=== PATIENT | female | born 1995 ===

== ENCOUNTER 2018-08-27 21:12 | Emergency (ER) | payer MEDICAID, OTHER ==
[2018-08-27 21:53] VITALS: BP 142/83; PULSE 89; RESP 16; TEMP 98.2; O2SAT 100
== END 2018-08-27 23:30 | disposition left against medical advice (07) ==
LOC: H.ER 21:12
DX: Z02.89 Encounter for other administrative examinations (principal)

== ENCOUNTER 2018-08-28 13:51 | Emergency (ER) | payer MEDICAID, OTHER ==
[2018-08-28 14:03] VITALS: TEMP 98.1; O2SAT 100
[2018-08-28] MEDS ORDERED: Alum-Mag Hydrox-Simethicone Susp (30 mL) PO ONE (14:25)
[2018-08-28 14:44] LABS: SPERM URINE RARE /hpf; SQUAMOUS EPITHIAL 6 /hpf (0-5); URINE AMORPHOUS SEDIMENT RARE /ul (<OCC); URINE BILIRUBIN NEGATIVE (NEGATIVE); URINE BLOOD NEGATIVE (NEGATIVE); URINE CLARITY SLIGHTY-CLOUDY (Clear); URINE COLOR YELLOW (YELLOW); URINE GLUCOSE (UA) NEG (Normal); URINE LEUKOCYTE ESTERASE TRACE Leu/uL (Negative); URINE PROTEIN 30 mg/dL (NEGATIVE); URINE UROBILINOGEN 0.2-1.0 mg/dL (0.2-1.0)
--- NOTE | 2018-08-28 14:46 | ED PDOC ---
HPI: Abdomen Time Seen by Provider: 08/28/18 14:12 Chief Complaint (Nursing): Abdominal Pain Chief Complaint (Provider): Abdominal Pain History Per: Patient History/Exam Limitations: no limitations Onset/Duration Of Symptoms: Days (x2 years) Location Of Pain/Discomfort: Epigastric Additional Complaint(s): 23 year old female presents with epigastric pain for 2 years. Patient describes pain as acid-like which is worse after eating regardless of what she eats. She takes Tums without relief. Over the past three to four days, her pain has worsened despite taking Tums. She denies nausea, vomiting, diarrhea, chest pain or shortness of breath. PMD: none provided Past Medical History Reviewed: Historical Data, Nursing Documentation, Vital Signs Vital Signs: Last Vital Signs Temp 98.1 F 08/28/18 14:00 Pulse 80 08/28/18 14:00 Resp 16 08/28/18 14:00 BP 132/82 08/28/18 14:00 Pulse Ox 100 08/28/18 14:00 - Medical History PMH: Pneumonia Denies: Chronic Kidney Disease - Family History Family History: States: Unknown Family Hx - Home Medications Home Medications: Ambulatory Orders Medication Instructions Recorded Famotidine [Pepcid] 20 mg PO DAILY PRN #14 tab 08/28/18 - Allergies Allergies/Adverse Reactions: Allergies Allergy/AdvReac Type Severity Reaction Status Date / Time No Known Allergies Allergy Verified 08/28/18 14:00 Review of Systems ROS Statement: Except As Marked, All Systems Reviewed And Found Negative Cardiovascular: Negative for: Chest Pain Respiratory: Negative for: Shortness of Breath Gastrointestinal: Positive for: Abdominal Pain (epigastric). Negative for: Nausea, Vomiting, Diarrhea Physical Exam - Reviewed Nursing Documentation Reviewed: Yes Vital Signs Reviewed: Yes - Physical Exam Appears: Positive for: No Acute Distress Eye Exam: Positive for: Normal appearance, EOMI, PERRL Cardiovascular/Chest: Positive for: Regular Rate, Rhythm. Negative for: Murmur Respiratory: Positive for: Normal Breath Sounds Gastrointestinal/Abdominal: Positive for: Soft. Negative for: Tenderness Back: Negative for: L CVA Tenderness, R CVA Tenderness Neurologic/Psych: Positive for: Alert, Oriented - Laboratory Results Result Diagrams: 08/28/18 14:43 08/28/18 14:43 - ECG O2 Sat by Pulse Oximetry: 100 (RA) Pulse Ox Interpretation: Normal - Progress Condition: Re-examined, Improved Medical Decision Making Medical Decision Making: Time: 1425 Initial Impression: Abdominal pain Initial Plan: --CMP --Lipase --Urine preg --CBC with differentials --Maalox 30 ml PO --Pepcid 20 mg IVP --UA --US abdomen --US gallbladder Time: 1744 US Abdomen, Right Upper Quadrant: FINDINGS: LIVER: Within normal limits in size and echogenicity. No mass. GALLBLADDER: The gallbladder appears within normal limits. No gallbladder wall thickening or pericholecystic fluid. COMMON BILE DUCT: No dilation. 2 mm. PANCREAS: The visualized pancreas appears within normal limits. The distal pancreas is obscured by bowel gas. RIGHT KIDNEY: Unremarkable. 9.8 cm. Normal renal contours. No renal mass or calculus. No hydronephrosis. IMPRESSION: Unremarkable right upper quadrant ultrasound. Scribe Attestation: Documented by Mini Candelario, acting as a scribe for Lyle Mas PA-C Provider Scribe Attestation: All medical record entries made by the Scribe were at my direction and personally dictated by me. I have reviewed the chart and agree that the record accurately reflects my personal performance of the history, physical exam, medical decision making, and the department course for this patient. I have also personally directed, reviewed, and agree with the discharge instructions and disposition. Disposition - Clinical Impression Clinical Impression: Dyspepsia - Patient ED Disposition Is Patient to be Admitted: No - Disposition Referrals: General Practice Service [Outside] Disposition: Routine/Home Disposition Time: 17:51 Condition: IMPROVED Additional Instructions: SANDER VASQUEZ, thank you for letting us take care of you today. Your provider was Ray Nguyen MD and you were treated for ABD PAIN. The emergency medical care you received today was directed at your acute symptoms. If you were prescribed any medication, please fill it and take as directed. It may take several days for your symptoms to resolve. Return to the Emergency Department if your symptoms worsen, do not improve, or if you have any other problems. Please contact your doctor or call one of the physicians/clinics you have been referred to that are listed on the Patient Visit Information form that is included in your discharge packet. Bring any paperwork you were given at discharge with you along with any medications you are taking to your follow up visit. Our treatment cannot replace ongoing medical care by a primary care provider outside of the emergency department. Thank you for allowing the [facility] team to be part of your care today. If you had an X-Ray or CT scan: A Radiologist will review the ED reading if any change in treatment is needed we will contact you. If you had a blood, urine, or wound culture: It will take several days for the results, if any change in treatment is needed we will contact you. If you had an STI test: It will take 48 hours for the results. Please call after 1 week if you have not heard back. Prescriptions: Famotidine [Pepcid] 20 mg PO DAILY PRN #14 tab PRN Reason: Dyspepsia Instructions: Dyspepsia (DC) Forms: [employer] (Spanish) Print Language: UPPER SORBIAN
[2018-08-28 14:48] LABS: BASO # 0.1 K/uL (0.0-0.2); BASO % 0.5 % (0.0-2.0); EOS # 0.1 K/uL (0.0-0.7); EOS % 0.7 % (0.0-4.0); HEMOGLOBIN 13.8 g/dL (12.0-16.0); LYMPH # 3.5 K/uL (1.0-4.3); MEAN CELL VOLUME 84.5 fl (81.0-99.0); MEAN CORPUSCULAR HEMOGLOBIN 28.4 pg (27.0-31.0); MEAN CORPUSCULAR HGB CONC 33.6 g/dL (33.0-37.0); MEAN PLATELET VOLUME 9.4 fl (7.2-11.7); MONO # 0.4 K/uL (0.0-0.8); MONO % 4.1 % (0.0-10.0); NEUT # 5.6 K/uL (1.8-7.0); NEUT % 58.7 % (50.0-75.0); NRBC % 0.1 % (0.0-0.0); RBC 4.85 Mil/uL (3.80-5.20); RED CELL DISTRIBUTION WIDTH 12.1 % (11.5-14.5); WHITE BLOOD COUNT 9.6 K/uL (4.8-10.8)
[2018-08-28 14:56] LABS: ALB/GLOB RATIO 1.1 (1.0-2.1); ALBUMIN 4.5 g/dL (3.5-5.0); ALT/SGPT 28 U/L (9-52); AST/SGOT 23 U/L (14-36); BLOOD UREA NITROGEN 11 mg/dl (7-17); CALCIUM 9.2 mg/dL (8.4-10.2); GFR NON-AFRICAN AMERICAN > 60; LIPASE 39 U/L (23-300)
[2018-08-28 18:05] VITALS: BP 132/70; PULSE 71; RESP 19
--- NOTE | 2018-08-28 19:09 | US ---
Date of service: 08/28/2018 HISTORY: epigastric abd pain COMPARISON: None. TECHNIQUE: Sonographic evaluation of the right upper quadrant of the abdomen. FINDINGS: LIVER: Measures cm in length. Normal echogenicity of the liver parenchyma. No mass. No intrahepatic bile duct dilatation. GALLBLADDER: Unremarkable. No gallstones. COMMON BILE DUCT: Measures mm. No stones. No dilatation. PANCREAS: Unremarkable as visualized. No mass. No ductal dilatation. RIGHT KIDNEY: Measures cm in length. Normal echogenicity. No calculus, mass, or hydronephrosis. AORTA: No aneurysmal dilatation. IVC: Unremarkable. OTHER FINDINGS: None . IMPRESSION: Normal exam.
== END 2018-08-28 18:04 | disposition home or self-care (01) ==
LOC: H.ER 13:51
DX: R10.13 Epigastric pain (principal)

== ENCOUNTER 2018-10-22 09:31 | Emergency (ER) | payer OTHER, SELFPAY ==
[2018-10-22 09:45] VITALS: RESP 18
[2018-10-22 11:23] LABS: URINE BACTERIA RARE (<OCC); URINE BILIRUBIN NEGATIVE (NEGATIVE); URINE BLOOD MODERATE (NEGATIVE); URINE CLARITY SLIGHTY-CLOUDY (Clear); URINE COLOR YELLOW (YELLOW); URINE GLUCOSE (UA) NEG (NEGATIVE); URINE LEUKOCYTE ESTERASE NEG Leu/uL (Negative); URINE PROTEIN NEGATIVE (NEGATIVE); URINE UROBILINOGEN 0.2-1.0 mg/dL (0.2-1.0)
[2018-10-22 11:34] LABS: BASO % 0.6 % (0.0-2.0); EOS # 0.1 K/uL (0.0-0.7); EOS % 1.1 % (0.0-4.0); HEMOGLOBIN 14.7 g/dL (12.0-16.0); LYMPH # 3.2 K/uL (1.0-4.3); LYMPH % 42.8 % (20.0-40.0); MEAN CELL VOLUME 84.1 fl (81.0-99.0); MEAN CORPUSCULAR HEMOGLOBIN 28.2 pg (27.0-31.0); MEAN CORPUSCULAR HGB CONC 33.5 g/dL (33.0-37.0); MEAN PLATELET VOLUME 9.4 fl (7.2-11.7); MONO # 0.5 K/uL (0.0-0.8); MONO % 6.8 % (0.0-10.0); NEUT # 3.6 K/uL (1.8-7.0); NEUT % 48.7 % (50.0-75.0); NRBC % 0.5 % (0.0-0.0); RBC 5.2 Mil/uL (3.80-5.20); RED CELL DISTRIBUTION WIDTH 12.2 % (11.5-14.5); WHITE BLOOD COUNT 7.4 K/uL (4.8-10.8)
[2018-10-22 11:37] LABS: ALB/GLOB RATIO 1.1 (1.0-2.1)
[2018-10-22 11:42] LABS: ALBUMIN 4.6 g/dL (3.5-5.0); ALT/SGPT 34 U/L (9-52); AST/SGOT 23 U/L (14-36); BLOOD UREA NITROGEN 8 mg/dl (7-17); CALCIUM 9.5 mg/dL (8.4-10.2); GFR NON-AFRICAN AMERICAN > 60; LIPASE 38 U/L (23-300)
[2018-10-22] MEDS ORDERED: Sodium Chloride 0.9% 50 ML IV ONE (12:02)
[2018-10-22] MEDS ORDERED: Iohexol 300 100 ML IJ ONE (12:02)
--- NOTE | 2018-10-22 14:38 | CT ---
Date of service: 10/22/2018 PROCEDURE: CT Abdomen and Pelvis with contrast HISTORY: repeat visit for central/upper abd pain COMPARISON: None. TECHNIQUE: Contrast dose: 95 mL Omnipaque 300 Radiation dose: Total exam DLP = 382.48 mGy-cm. This CT exam was performed using one or more of the following dose reduction techniques: Automated exposure control, adjustment of the mA and/or kV according to patient size, and/or use of iterative reconstruction technique. FINDINGS: LOWER THORAX: Unremarkable. LIVER: Unremarkable. No gross lesion or ductal dilatation. GALLBLADDER AND BILE DUCTS: Unremarkable. PANCREAS: Unremarkable. No gross lesion or ductal dilatation. SPLEEN: Unremarkable. ADRENALS: Unremarkable. No mass. KIDNEYS AND URETERS: Unremarkable. No hydronephrosis. No solid mass. VASCULATURE: Unremarkable. No aortic aneurysm. No aortic atherosclerotic calcification or mural plaque present. BOWEL: Unremarkable. No obstruction. No gross mural thickening. APPENDIX: Normal appendix. PERITONEUM: Unremarkable. No free fluid. No free air. LYMPH NODES: No retroperitoneal or pelvic lymphadenopathy. There are multiple subcentimeter nodes medial to the ascending colon, up to 8 mm in short axis. Possible mesenteric adenitis.. BLADDER: Nondistended REPRODUCTIVE: Probable small uterine fibroids. Correlate with pelvic ultrasound on a nonemergent basis. BONES: No acute fracture. OTHER FINDINGS: None. IMPRESSION: Multiple subcentimeter lymph nodes medial to the ascending colon, up to 8 mm short axis. Possible mesenteric adenitis. Probable small uterine fibroids. No other significant abnormality is identified.
--- NOTE | 2018-10-22 15:31 | ED PDOC ---
HPI: Abdomen Time Seen by Provider: 10/22/18 10:23 Chief Complaint (Nursing): Abdominal Pain Chief Complaint (Provider): abdominal pain, rash History Per: Patient History/Exam Limitations: no limitations Onset/Duration Of Symptoms: Days (1 week), Intermittent Episodes Current Symptoms Are (Timing): Intermittent Episodes Context: Food Severity: Mild Location Of Pain/Discomfort: Periumbilical Quality Of Discomfort: Cramping, Burning Associated Symptoms: Nausea. denies: Vomiting, Diarrhea, Loss Of Appetite Exacerbating Factors: None Alleviating Factors: None Additional History Per: Prior Records Additional Complaint(s): 23yo female c/o central and upper abdominal discomfort ongoing intermittently for several weeks. Also notes scattered intermittent rash to arms, legs and neck. States started new detergent she states may be causing but already stopped it. Denies throat swelling, SOB, cough or weakness. Denies melena, vomiting, diarrhea or BRBPR. Prior charts reviewed, had ED visit for abd pain in august, abdomen performed no gallstones. Past Medical History Reviewed: Historical Data, Nursing Documentation, Vital Signs Vital Signs: Last Vital Signs Temp 98.0 F 10/22/18 09:44 Pulse 73 10/22/18 09:44 Resp 18 10/22/18 09:44 BP 131/81 10/22/18 09:44 Pulse Ox 100 10/22/18 09:44 - Medical History PMH: Pneumonia Denies: Chronic Kidney Disease - Family History Family History: States: Unknown Family Hx - Living Arrangements Living Arrangements: With Family - Social History Current smoker - smoking cessation education provided: No - Home Medications Home Medications: Ambulatory Orders Medication Instructions Recorded Famotidine [Pepcid] 20 mg PO DAILY PRN #14 tab 08/28/18 DiphenhydrAMINE [Benadryl] 25 mg PO Q8 PRN #15 cap 10/22/18 Ibuprofen [Motrin Tab] 600 mg PO Q6 PRN #15 tab 10/22/18 Ranitidine HCl [Zantac] 150 mg PO BID #20 tablet 10/22/18 - Allergies Allergies/Adverse Reactions: Allergies Allergy/AdvReac Type Severity Reaction Status Date / Time No Known Allergies Allergy Verified 08/28/18 14:00 Review of Systems Constitutional: Negative for: Fever, Chills, Weight loss Eyes: Negative for: Vision Change ENT: Negative for: Ear Pain, Throat Pain Cardiovascular: Negative for: Chest Pain, Palpitations, Orthopnea Respiratory: Negative for: Cough, Shortness of Breath, Hemoptysis Gastrointestinal: Positive for: Nausea, Abdominal Pain. Negative for: Vomiting, Diarrhea, Melena, Hematochezia, Hematemesis Genitourinary Female: Positive for: Vaginal Bleeding (menses). Negative for: Dysuria, Hematuria Musculoskeletal: Negative for: Neck Pain, Back Pain, Leg Pain Skin: Positive for: Rash. Negative for: Lesions, Jaundice Neurological: Negative for: Weakness, Numbness, Confusion, Altered Mental Status Psych: Negative for: Depression Physical Exam - Reviewed Nursing Documentation Reviewed: Yes Vital Signs Reviewed: Yes - Physical Exam Appears: Positive for: Well, Non-toxic, No Acute Distress Head Exam: Positive for: ATRAUMATIC, NORMAL INSPECTION, NORMOCEPHALIC Skin: Positive for: Warm, Dry, Rash (small urticarial appearing lesions to L antecubital and R upper arm, L neck, L thigh (barely visible), no ecchymosis, no petechiae, no induration, nontender) Eye Exam: Positive for: EOMI, Normal appearance, PERRL ENT: Positive for: Normal ENT Inspection Neck: Positive for: Normal, Painless ROM Cardiovascular/Chest: Positive for: Regular Rate, Rhythm Respiratory: Positive for: CNT, Normal Breath Sounds Gastrointestinal/Abdominal: Positive for: Soft, Tenderness (minimal in periumbilical area). Negative for: Distended, Guarding, Rebound Back: Positive for: Normal Inspection Extremity: Positive for: Normal ROM Neurologic/Psych: Positive for: Alert, Oriented. Negative for: Motor/Sensory Deficits - Laboratory Results Result Diagrams: 10/22/18 11:15 10/22/18 11:15 Urine POC: Negative - ECG O2 Sat by Pulse Oximetry: 100 Pulse Ox Interpretation: Normal Medical Decision Making Medical Decision Making: US report from prior visit reviewed given recurrent visits, obtain CT imaging along w bloodwork, benadryl initiated for mild rash. Accession No. : [id number] Patient Name / ID : RADHA BOUCHER / [id number] Exam Date : 10/22/2018 13:45:40 ( Approved ) Study Comment : Sex / Age : F / 23Y Creator : Lester Sanderson MD Dictator : Lester Sanderson MD Payable Representative : Bird Raiser : Lester Sanderson MD Approver2 : Report Date : 10/22/2018 14:35:00 My Comment : Date of service: 10/22/2018 PROCEDURE: CT Abdomen and Pelvis with contrast HISTORY: repeat visit for central/upper abd pain COMPARISON: None. TECHNIQUE: Contrast dose: 95 mL Omnipaque 300 Radiation dose: Total exam DLP = 382.48 mGy-cm. This CT exam was performed using one or more of the following dose reduction techniques: Automated exposure control, adjustment of the mA and/or kV according to patient size, and/or use of iterative reconstruction technique. FINDINGS: LOWER THORAX: Unremarkable. LIVER: Unremarkable. No gross lesion or ductal dilatation. GALLBLADDER AND BILE DUCTS: Unremarkable. PANCREAS: Unremarkable. No gross lesion or ductal dilatation. SPLEEN: Unremarkable. ADRENALS: Unremarkable. No mass. KIDNEYS AND URETERS: Unremarkable. No hydronephrosis. No solid mass. VASCULATURE: Unremarkable. No aortic aneurysm. No aortic atherosclerotic calcification or mural plaque present. BOWEL: Unremarkable. No obstruction. No gross mural thickening. APPENDIX: Normal appendix. PERITONEUM: Unremarkable. No free fluid. No free air. LYMPH NODES: No retroperitoneal or pelvic lymphadenopathy. There are multiple subcentimeter nodes medial to the ascending colon, up to 8 mm in short axis. Possible mesenteric adenitis.. BLADDER: Nondistended REPRODUCTIVE: Probable small uterine fibroids. Correlate with pelvic ultrasound on a nonemergent basis. BONES: No acute fracture. OTHER FINDINGS: None. IMPRESSION: Multiple subcentimeter lymph nodes medial to the ascending colon, up to 8 mm short axis. Possible mesenteric adenitis. Probable small uterine fibroids. No other significant abnormality is identified. Refer to clinic for GI evaluation and Rx benadryl for rash prn, caution w driving or operating machinery may cause drowsiness. Explained results in full, improved over course of ED stay. 0 Disposition - Clinical Impression Clinical Impression: Abdominal pain, Rash Counseled Patient/Family Regarding: Studies Performed, Diagnosis, Need For Followup, Rx Given - Disposition Referrals: [facility] [Outside] Disposition: Routine/Home Disposition Time: 14:45 Condition: STABLE Additional Instructions: Followup with GI doctor for further testing. Return to ER for any worse or new symptoms. Prescriptions: DiphenhydrAMINE [Benadryl] 25 mg PO Q8 PRN #15 cap PRN Reason: Rash Ibuprofen [Motrin Tab] 600 mg PO Q6 PRN #15 tab PRN Reason: Pain, Moderate (4-7) Ranitidine HCl [Zantac] 150 mg PO BID #20 tablet Instructions: Acute Abdomen (Belly Pain), Adult (DC), Skin Rash (DC) Forms: [employer] [facility] (Pashto)
[2018-10-22 15:56] VITALS: BP 122/76; PULSE 92; TEMP 98.1; O2SAT 96
== END 2018-10-22 15:42 | disposition home or self-care (01) ==
LOC: H.ER 09:31
DX: R10.9 Unspecified abdominal pain (principal); R21 Rash and other nonspecific skin eruption
CPT/HCPCS: 74177; 80053; 81003; 81025; 83690; 85025; 96374; 99284; Q9967